=== PATIENT | male | born 1950 | race American Indian/Alaskan Native ===

== ENCOUNTER 2016-10-15 12:33 | Outpatient (CLI) | payer BC ==
--- NOTE | 2016-10-15 14:01 | Cat Scan Report ---
CT of the abdomen and pelvis without contrast. The liver, spleen, and pancreas are normal. There are 2 stones in the right kidney, largest of which measures 7 mm in diameter located in the lower pole. A 3 mm stone is seen in the upper pole of the right kidney. There is a 6 mm stone at the left ureteropelvic junction with mild left hydronephrosis and perinephric stranding. A 1-2 mm stone is seen in the left kidney. No additional left ureteral stones are seen. There no pelvic masses or abnormal fluid collections. No mesenteric inflammation seen. Impression: 1. 6 mm Left UP junction stone with mild obstructive uropathy. 2. 2 stones are described in the right kidney with no obstruction.
== END 2016-10-15 12:34 | disposition home or self-care (01) ==
LOC: CT 12:33
PROVIDERS: ATTEND Urology
DX: N13.2 Hydronephrosis with renal and ureteral calculous obstruction (principal); N39.9 Disorder of urinary system, unspecified
CPT/HCPCS: 74176